=== PATIENT | male | born 1980 | race African-American/Black ===

== ENCOUNTER 2018-03-20 15:44 | Emergency (ER) | payer BC, OTHER ==
[~2018-03-20] VITALS: Ht 182.9 cm; Wt 93.9 kg
[~2018-03-20 15:44] MED LIST: NOHOMEMEDICATIONS; TRAMADOL 50 MG50 MG PO
[2018-03-20 16:03] LABS: URINE BILIRUBIN NEGATIVE (Negative); URINE BLOOD TRACE (Negative); URINE CLARITY CLEAR; URINE COLOR YELLOW; URINE GLUCOSE-RANDOM* NEGATIVE (Negative); URINE KETONES NEGATIVE (Negative); URINE LEUKOCYTES-REFLEX NEGATIVE (Negative); URINE NITRITE-REFLEX NEGATIVE (Negative); URINE PROTEIN (DIPSTICK) NEGATIVE (Negative); URINE SPECIFIC GRAVITY >= 1.030 (1.005-1.035); URINE UROBILINOGEN 0.2 E.U./dl (0.2-1.0)
[2018-03-20 16:48] VITALS: BP 141/89
== END 2018-03-20 16:49 | disposition home or self-care (01) ==
LOC: ER 15:44
PROVIDERS: Physician Assistant
DX: R30.0 Dysuria (principal)